=== PATIENT | female | born 1970 | race Caucasian/White ===

== ENCOUNTER 2021-04-06 11:31 | Emergency (ER) | payer BC ==
[~2021-04-06] VITALS: Ht 162.6 cm; Wt 77.1 kg
[2021-04-06] MEDS ORDERED: SWABABLE VALVE TRANSFER SET EA MC ONE (12:15)
[2021-04-06] MEDS ORDERED: IOHEXOL 350 100 ML INFUS..BTL ONE ×2 (12:15→13:27)
[2021-04-06] MEDS ORDERED: IV NORMAL SALINE 250 ML IV ONE (12:15)
[2021-04-06 12:29] LABS: CREATININE 0.7 mg/dL (0.6-1.3); POTASSIUM 5.1 mmol/L (3.5-5.1)
--- NOTE | 2021-04-06 12:30 | NUR ---
unable to heplock the pt. called supervisor esters and emulsifiers for midline.
--- NOTE | 2021-04-06 14:00 | NUR ---
midline gauge 18 placed by midline rn on the right fa.
[2021-04-06 15:21] LABS: HEMATOCRIT 43.8 % (31.2-41.9); MEAN CORPUSCULAR HEMOGLOBIN 31.3 uug (24.7-32.8); MEAN CORPUSCULAR VOLUME 90.6 fL (75.5-95.3); PLATELET COUNT (AUTO) 384 K/uL (179-408)
--- NOTE | 2021-04-06 16:10 | NUR ---
Patient discharged to home in stable condition. Written and verbal after care instructions given. Patient verbalizes understanding of instructions. Stressed follow up or return to ER for worsening s/s.pt says feels better, walks in steady gait. Addendum: 04/06/21 at 1628 by YESENIA pt remained calm and comfortable the whole er stay, no sign of distress, sob
[2021-04-06 16:26] VITALS: BP 129/81
== END 2021-04-06 16:28 | disposition home or self-care (01) ==
LOC: ER 11:31
DX: R07.9 Chest pain, unspecified (principal); E78.5 Hyperlipidemia, unspecified; I10 Essential (primary) hypertension; Z82.49 Family history of ischemic heart disease and other diseases of the circulatory system; F17.200 Nicotine dependence, unspecified, uncomplicated
CPT/HCPCS: 36410; 36415; 71045; 71275; 80048; 83880; 84484 ×2; 85025; 93005; 99285; Q9967; 70030-TC; A4663; J7050